=== PATIENT | female | born 1935 | race Caucasian/White ===

== ENCOUNTER 2020-01-08 09:38 | Inpatient (IN) | payer MEDICARE, BC, OTHER ==
--- NOTE | 2020-01-08 10:21 | EDM.PDOC ---
ED HPI GENERAL MEDICAL PROBLEM - General Chief Complaint: Respiratory Problem Stated Complaint: SOB. COVID+ Time Seen by Provider: 01/08/20 10:00 Source of Information: Reports: Patient History Limitations: Reports: No Limitations - History of Present Illness INITIAL COMMENTS - FREE TEXT/NARRATIVE: States that she started to have symptoms of SOB and cough on Sunday. Was tested and was COVID + yesterday. She thought that she was some better and then this morning she became much more SOB and came to the ER. States that it is hard to breathe. Sats on room air are 91%. They go up to 94-95 with 2 liters of oxygen. She has cough which is dry. States that she feels better on the oxygen. 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 - Related Data Allergies Allergy/AdvReac Type Severity Reaction Status Date / Time No Known Allergies Allergy Verified 01/08/20 09:50 Home Meds: Home Meds Allopurinol [Zyloprim] 100 mg PO DAILY 01/08/20 [History] Clopidogrel Bisulfate [Plavix] 75 mg PO DAILY 01/08/20 [History] Furosemide [Lasix] 40 mg PO BID 01/08/20 [History] Levothyroxine Sodium [Synthroid] 75 mcg PO ACBREAKFAST 01/08/20 [History] Losartan [Cozaar] 100 mg PO DAILY 01/08/20 [History] Metoprolol Tartrate 100 mg PO BID 01/08/20 [History] Simvastatin 20 mg PO BEDTIME 01/08/20 [History] amLODIPine Besylate [Amlodipine Besylate] 10 mg PO DAILY 01/08/20 [History] cloNIDine HCL [Clonidine HCl] 0.1 mg PO TID 01/08/20 [History] Past Medical History Cardiovascular History: Reports: High Cholesterol, Hypertension - History Comment History Comment: See RN notes for past medical and surgical history Social & Family History - Family History Family Medical History: Noncontributory - Tobacco Use Tobacco Use Status *Q: Never Tobacco User Second Hand Smoke Exposure: Yes - Caffeine Use Caffeine Use: Reports: None - Recreational Drug Use Recreational Drug Use: No - Living Situation & Occupation Living situation: Reports: , Alone Occupation: Retired ED ROS GENERAL - Review of Systems Review Of Systems: See Below Constitutional: Reports: Weakness, Fatigue HEENT: Reports: No Symptoms Respiratory: Reports: Shortness of Breath, Wheezing, Cough Cardiovascular: Denies: Chest Pain GI/Abdominal: Reports: No Symptoms Musculoskeletal: Reports: No Symptoms Skin: Reports: No Symptoms Neurological: Reports: No Symptoms Psychiatric: Reports: Anxiety ED EXAM, GENERAL - Physical Exam Exam: See Below Exam Limited By: No Limitations General Appearance: Alert, WD/WN, Anxious, Moderate Distress Eye Exam: Bilateral Eye: PERRL Nose: Normal Inspection Throat/Mouth: Normal Inspection, Normal Oropharynx Head: Atraumatic, Normocephalic Neck: Normal Inspection, Supple, Full Range of Motion Respiratory/Chest: No Respiratory Distress, Rhonchi (right is worse that the left.). No: Rales Cardiovascular: Regular Rate, Rhythm, No Edema GI/Abdominal: Normal Bowel Sounds, Soft, Non-Tender Back Exam: Normal Inspection Extremities: Normal Inspection, No Pedal Edema Neurological: Alert, Oriented Skin Exam: Warm, Dry, Intact Course - Vital Signs Last Recorded V/S: Last Vital Signs Temp 98.4 F 01/09/20 12:00 Pulse 76 01/09/20 12:00 Resp 24 H 01/09/20 12:00 BP 142/71 H 01/09/20 14:23 Pulse Ox 96 01/09/20 12:00 - Orders/Labs/Meds Orders: Medication Orders Acetaminophen (Tylenol) 650 mg PO Q4H PRN PRN Reason: Pain (Mild 1-3)/fever Last Admin: 01/09/20 08:39 Dose: 650 mg Documented by: ANKITA Albuterol (Ventolin Hfa) 0 gm INH Q4H PRN PRN Reason: Dyspnea Last Admin: 01/09/20 10:00 Dose: 1 puff Documented by: ANKITA Allopurinol (Zyloprim) 100 mg PO DAILY [facility] Last Admin: 01/09/20 07:59 Dose: 100 mg Documented by: ANKITA Amlodipine Besylate (Norvasc) 10 mg PO DAILY [facility] Last Admin: 01/09/20 08:01 Dose: 10 mg Documented by: ANKITA Clonidine HCl (Catapres) 0.1 mg PO TID [facility] Last Admin: 01/09/20 14:23 Dose: 0.1 mg Documented by: Admin: 01/09/20 08:00 Dose: 0.1 mg Documented by: Admin: 01/08/20 19:39 Dose: 0.1 mg Documented by: Admin: 01/08/20 15:32 Dose: 0.1 mg Documented by: ANKITA Dexamethasone (Dexamethasone) 6 mg PO DAILY [facility] Stop: 01/18/20 16:01 Last Admin: 01/09/20 08:01 Dose: 6 mg Documented by: Admin: 01/08/20 15:31 Dose: 6 mg Documented by: ANKITA Enoxaparin Sodium (Lovenox) 30 mg SUBCUT BID [facility] Last Admin: 01/09/20 08:02 Dose: 30 mg Documented by: Admin: 01/08/20 19:38 Dose: 30 mg Documented by: MARY Furosemide (Lasix) 40 mg PO BID@0800,1600 [facility] Last Admin: 01/09/20 16:34 Dose: 40 mg Documented by: Admin: 01/09/20 08:01 Dose: 40 mg Documented by: Admin: 01/08/20 15:32 Dose: 40 mg Documented by: ANKITA Remdesivir 100 mg/ Sodium (Chloride) 100 mls @ 100 mls/hr IV Q24H [facility] Stop: 01/12/20 16:59 Last Admin: 01/09/20 16:34 Dose: 100 mls/hr Documented by: ANKITA Sodium Chloride (Normal Saline) 1,000 mls @ 75 mls/hr IV ASDIRECTED [facility] Stop: 01/09/20 23:19 Last Admin: 01/09/20 10:00 Dose: 75 mls/hr Documented by: ANKITA Levothyroxine Sodium (Synthroid) 75 mcg PO ACBREAKFAST [facility] Last Admin: 01/09/20 06:00 Dose: 75 mcg Documented by: MARY Losartan Potassium (Cozaar) 100 mg PO DAILY [facility] Last Admin: 01/09/20 08:02 Dose: 100 mg Documented by: ANKITA Melatonin (Melatonin) 6 mg PO BEDTIME PRN PRN Reason: Insomnia Metoprolol Tartrate (Lopressor) 100 mg PO BID [facility] Last Admin: 01/09/20 08:00 Dose: 100 mg Documented by: Admin: 01/08/20 19:39 Dose: 100 mg Documented by: MARY Ondansetron HCl (Zofran) 4 mg IV Q6H PRN PRN Reason: Nausea/Vomiting Simvastatin (Zocor) 20 mg PO BEDTIME JOSE Last Admin: 01/08/20 19:39 Dose: 20 mg Documented by: MARY Sodium Chloride (Saline Flush) 10 ml FLUSH ASDIRECTED PRN PRN Reason: Keep Vein Open Labs: Laboratory Tests 01/08/20 01/08/20 01/08/20 Range/Units 10:00 10:00 10:00 WBC 6.5 (5.0-10.0) 10^3/uL RBC 3.15 L (4.00-5.50) 10^6/uL Hgb 10.2 L (12.0-16.0) g/dL Hct 29.4 L (37.0-47.0) % MCV 93.3 (82.0-94.0) fL MCH 32.4 H (27.0-32.0) pg MCHC 34.7 (33.0-38.0) g/dL RDW Coeff of Prieto 13.7 (11.0-15.0) % Plt Count 280 (150-400) 10^3/uL Neut % (Auto) 63.4 (35-85) % Lymph % (Auto) 23.8 (10-55) % [place] % (Auto) 9.1 (0-16) % Eos % (Auto) 3.4 (0-5) % Baso % (Auto) 0.3 (0-3) % Neut # (Auto) 4.13 (1.80-7.00) 10^3/uL Lymph # (Auto) 1.55 (1.00-4.80) 10^3/uL [place] # (Auto) 0.59 (0.00-0.80) 10^3/uL Eos # (Auto) 0.22 (0.00-0.45) 10^3/uL Baso # (Auto) 0.02 10^3/uL D-Dimer, Quantitative (0.00-0.50) ABG pH (7.35-7.45) ABG pCO2 (35-45) mm/Hg0 ABG pO2 (80-100) mm/Hg ABG HCO3 (22.0-26.0) mm/L ABG O2 Saturation (95-98) % ABG Base Excess (-2.0-3.0) O2 Delivery Device Sodium 131 L (136-145) mEq/L Potassium 4.3 (3.5-5.0) mEq/L Chloride 98 (98-106) mEq/L Carbon Dioxide 21 (21-32) mmol/L BUN 27 H (7-18) mg/dL Creatinine 1.5 H (0.6-1.0) mg/dL Est Cr Clr Drug Dosing 21.44 mL/min Estimated GFR (MDRD) 33 L (>=60) mL/min Glucose 114 H (75-99) mg/dL Lactic Acid 0.8 (0.4-2.0) mmol/L Calcium 8.4 (8.4-10.1) mg/dL Magnesium 2.0 (1.8-2.4) mg/dL Total Bilirubin 0.4 (0.0-1.0) mg/dL AST 20 (15-37) U/L ALT 18 (12-78) U/L Alkaline Phosphatase 129 H (46-116) U/L C-Reactive Protein 16.4 H (0.2-0.8) mg/dL Total Protein 7.8 (6.4-8.2) g/dL Albumin 2.9 L (3.4-5.0) g/dL Blood Type 01/08/20 01/08/20 01/08/20 Range/Units 10:00 10:29 12:00 WBC (5.0-10.0) 10^3/uL RBC (4.00-5.50) 10^6/uL Hgb (12.0-16.0) g/dL Hct (37.0-47.0) % MCV (82.0-94.0) fL MCH (27.0-32.0) pg MCHC (33.0-38.0) g/dL RDW Coeff of Prieto (11.0-15.0) % Plt Count (150-400) 10^3/uL Neut % (Auto) (35-85) % Lymph % (Auto) (10-55) % [place] % (Auto) (0-16) % Eos % (Auto) (0-5) % Baso % (Auto) (0-3) % Neut # (Auto) (1.80-7.00) 10^3/uL Lymph # (Auto) (1.00-4.80) 10^3/uL [place] # (Auto) (0.00-0.80) 10^3/uL Eos # (Auto) (0.00-0.45) 10^3/uL Baso # (Auto) 10^3/uL D-Dimer, Quantitative 2.67 H (0.00-0.50) ABG pH 7.39 (7.35-7.45) ABG pCO2 27 L (35-45) mm/Hg0 ABG pO2 65 L (80-100) mm/Hg ABG HCO3 16.4 L (22.0-26.0) mm/L ABG O2 Saturation 93 L (95-98) % ABG Base Excess -8.0 L (-2.0-3.0) O2 Delivery Device Room air Sodium (136-145) mEq/L Potassium (3.5-5.0) mEq/L Chloride (98-106) mEq/L Carbon Dioxide (21-32) mmol/L BUN (7-18) mg/dL Creatinine (0.6-1.0) mg/dL Est Cr Clr Drug Dosing mL/min Estimated GFR (MDRD) (>=60) mL/min Glucose (75-99) mg/dL Lactic Acid (0.4-2.0) mmol/L Calcium (8.4-10.1) mg/dL Magnesium (1.8-2.4) mg/dL Total Bilirubin (0.0-1.0) mg/dL AST (15-37) U/L ALT (12-78) U/L Alkaline Phosphatase (46-116) U/L C-Reactive Protein (0.2-0.8) mg/dL Total Protein (6.4-8.2) g/dL Albumin (3.4-5.0) g/dL Blood Type A POSITIVE Meds: Medications Generic Name Dose Route Start Last Admin Trade Name Freq PRN Reason Stop Dose Admin Acetaminophen 650 mg 01/08/20 13:49 01/09/20 08:39 Tylenol PO 650 mg Q4H PRN Administration Pain (Mild 1-3)/fever Albuterol 0 gm 01/09/20 08:36 01/09/20 10:00 Ventolin Hfa INH 1 puff Q4H PRN Administration Dyspnea Allopurinol 100 mg 01/09/20 08:00 10/16/20 07:59 Zyloprim PO 100 mg DAILY JOSE Administration Amlodipine Besylate 10 mg 01/09/20 08:00 01/09/20 08:01 Norvasc PO 10 mg DAILY JOES Administration Clonidine HCl 0.1 mg 01/08/20 14:00 01/09/20 14:23 Catapres PO 0.1 mg TID JOSE Administration Dexamethasone 6 mg 01/08/20 16:00 01/09/20 08:01 Dexamethasone PO 01/18/20 16:01 6 mg DAILY JOSE Administration Enoxaparin Sodium 30 mg 01/08/20 20:00 01/09/20 08:02 Lovenox SUBCUT 30 mg BID JOSE Administration Furosemide 40 mg 01/08/20 16:00 01/09/20 16:34 Lasix PO 40 mg BID@0800,1600 JOSE Administration Remdesivir 100 mg/ Sodium 100 mls @ 100 mls/hr 01/09/20 16:00 01/09/20 16:34 Chloride IV 01/12/20 16:59 100 mls/hr Q24H JOSE Administration Sodium Chloride 1,000 mls @ 75 mls/hr 01/09/20 10:00 01/09/20 10:00 Normal Saline IV 01/09/20 23:19 75 mls/hr ASDIRECTED JOSE Administration Levothyroxine Sodium 75 mcg 01/09/20 07:00 01/09/20 06:00 Synthroid PO 75 mcg ACBREAKFAST JOSE Administration Losartan Potassium 100 mg 01/09/20 08:00 01/09/20 08:02 Cozaar PO 100 mg DAILY JOSE Administration Melatonin 6 mg 01/09/20 08:37 Melatonin PO BEDTIME PRN Insomnia Metoprolol Tartrate 100 mg 01/08/20 20:00 01/09/20 08:00 Lopressor PO 100 mg BID JOSE Administration Ondansetron HCl 4 mg 01/08/20 13:49 Zofran IV Q6H PRN Nausea/Vomiting Simvastatin 20 mg 01/08/20 20:00 01/08/20 19:39 Zocor PO 20 mg BEDTIME JOSE Administration Sodium Chloride 10 ml 01/08/20 13:49 Saline Flush FLUSH ASDIRECTED PRN Keep Vein Open Discontinued Medications Generic Name Dose Route Start Last Admin Trade Name Freq PRN Reason Stop Dose Admin Diphenhydramine HCl 50 mg 01/08/20 11:43 01/08/20 11:51 Benadryl IVPUSH 01/08/20 11:44 50 mg ONETIME ONE Administration Remdesivir 200 mg/ Sodium 250 mls @ 250 mls/hr 01/08/20 16:00 01/08/20 15:33 Chloride IV 01/08/20 16:59 250 mls/hr ONETIME ONE Administration Iopamidol 100 ml 01/08/20 11:05 01/08/20 11:16 Isovue-370 (76%) IVPUSH 01/08/20 11:06 100 ml ONETIME ONE Administration Ondansetron HCl 4 mg 01/08/20 11:43 01/08/20 11:51 Zofran IVPUSH 01/08/20 11:44 4 mg NOW STA Administration - Re-Assessments/Exams Free Text/Narrative Re-Assessment/Exam: 01/08/20 12:Discussed results of testing and the CTA of chest is negative for PE. As her sats on room air when coming in were 91% and she was able to get them up to 94-95% on 2 liters and she feels much better she will qualify for remdesivir and plasma infusions. She requests to stay code 1 and is in agreement to be admitted at this time. Pt discussed with Dr. Jackson and he agrees that she will qualify and to the admission. Departure - Departure Time of Disposition: 13:08 Disposition: Admitted As Inpatient 67 Condition: Serious Clinical Impression: Pneumonia due to 2019 novel coronavirus Hypertension Qualifiers: Hypertension type: essential hypertension Qualified Code(s): I10 - Essential (primary) hypertension Hyperlipidemia Qualifiers: Hyperlipidemia type: mixed hyperlipidemia Qualified Code(s): E78.2 - Mixed hyperlipidemia Hypothyroidism Qualifiers: Hypothyroidism type: acquired Qualified Code(s): E03.9 - Hypothyroidism, unspecified Gout Qualifiers: Gout site: unspecified site Encounter type: sequela Chronicity: unspecified - Discharge Information *PRESCRIPTION DRUG MONITORING PROGRAM REVIEWED*: Not Applicable *COPY OF PRESCRIPTION DRUG MONITORING REPORT IN PATIENT NAIMA: Not Applicable Sepsis Event Note (ED) - Evaluation Sepsis Screening Result: No Definite Risk - Problem List & Annotations (1) Pneumonia due to 2019 novel coronavirus SNOMED Code(s): 889423855723047398 Code(s): U07.1 - COVID-19; J12.89 - OTHER VIRAL PNEUMONIA Status: Acute Priority: High Current Visit: Yes (2) Hyperlipidemia SNOMED Code(s): 72822461 Code(s): E78.5 - HYPERLIPIDEMIA, UNSPECIFIED Status: Chronic Priority: Low Current Visit: Yes Qualifiers: Hyperlipidemia type: mixed hyperlipidemia Qualified Code(s): E78.2 - Mixed hyperlipidemia (3) Hypertension SNOMED Code(s): 66689004 Code(s): I10 - ESSENTIAL (PRIMARY) HYPERTENSION Status: Chronic Priority: Low Current Visit: Yes Qualifiers: Hypertension type: essential hypertension Qualified Code(s): I10 - Essential (primary) hypertension (4) Gout SNOMED Code(s): 58038660 Code(s): M10.9 - GOUT, UNSPECIFIED Status: Chronic Priority: Low Current Visit: Yes Qualifiers: Gout site: unspecified site Encounter type: sequela Chronicity: unspecified (5) Hypothyroidism SNOMED Code(s): 77946854 Code(s): E03.9 - HYPOTHYROIDISM, UNSPECIFIED Status: Chronic Priority: Low Current Visit: Yes Qualifiers: Hypothyroidism type: acquired Qualified Code(s): E03.9 - Hypothyroidism, unspecified - Problem List Review Problem List Initiated/Reviewed/Updated: Yes - Assessment/Plan Admission H&P: Please use this note as an admission H&P
[2020-01-08 10:29] LABS: O2 DELIVERY DEVICE ROOM AIR; O2 SATURATION ARTERIAL 93 % (95-98); PCO2 ARTERIAL 27 mm/Hg0 (35-45); PO2 ARTERIAL 65 mm/Hg (80-100)
[2020-01-08 10:30] LABS: BICARBONATE,ARTERIAL 16.4 mm/L (22.0-26.0)
[2020-01-08] MEDS ORDERED: Iopamidol 755 Mg/ML 100 ML Bottle IVPUSH ONE (11:05)
[2020-01-08] MEDS ORDERED: Ondansetron 4 MG/2 ML SDV IVPUSH STA (11:43)
[2020-01-08] MEDS ORDERED: diphenhydrAMINE 50 MG/ML SDV IVPUSH ONE (11:43)
[2020-01-08] MEDS ORDERED: Ondansetron 4 MG/2 ML SDV IV PRN (13:49)
[2020-01-08] MEDS ORDERED: Sodium Chloride 0.9% 10 ML Syringe FLUSH PRN (13:49)
[2020-01-08] MEDS: Dexamethasone 4 MG Tab PO SCH (15:31)
[2020-01-08] MEDS: cloNIDine 0.1 MG Tab PO SCH ×2 (15:32→19:39)
[2020-01-08] MEDS: Furosemide 40 MG Tab PO SCH (15:32)
[2020-01-08] MEDS ORDERED: REMDESIVIR 200 MG in Sodium Chloride 0.9% 250 ML IV ONE (16:00)
[2020-01-08] MEDS: Enoxaparin 30 MG/0.3 ML Syringe SUBCUT SCH (19:38)
[2020-01-08] MEDS: Metoprolol Tartrate 50 MG Tab PO SCH (19:39)
[2020-01-08] MEDS: Simvastatin 20 MG Tab PO SCH (19:39)
[2020-01-09] MEDS: Levothyroxine 50 MCG Tab PO SCH (06:00)
[2020-01-09] MEDS: Allopurinol 100 MG Tab PO SCH (07:59)
[2020-01-09] MEDS: Metoprolol Tartrate 50 MG Tab PO SCH ×2 (08:00→19:06)
[2020-01-09] MEDS: cloNIDine 0.1 MG Tab PO SCH ×3 (08:00→19:07)
[2020-01-09] MEDS: amLODIPine 10 MG Tab PO SCH (08:01)
[2020-01-09] MEDS: Furosemide 40 MG Tab PO SCH ×2 (08:01→16:34)
[2020-01-09] MEDS: Dexamethasone 4 MG Tab PO SCH (08:01)
[2020-01-09] MEDS: Enoxaparin 30 MG/0.3 ML Syringe SUBCUT SCH ×2 (08:02→19:07)
[2020-01-09] MEDS: Losartan 100 MG Tab PO SCH (08:02)
[2020-01-09] MEDS ORDERED: Albuterol 8 GM Inhaler INH PRN (08:36)
[2020-01-09] MEDS ORDERED: Melatonin 3 MG Tab PO PRN (08:37)
[2020-01-09] MEDS: Acetaminophen 325 MG Tab PO PRN ×2 (08:39→16:51)
--- NOTE | 2020-01-09 08:44 | PCM.PN ---
- General Info Date of Service: 01/09/20 Admission Dx/Problem (Free Text): Covid 19 Functional Status: Reports: Pain Controlled, Tolerating Diet, Ambulating - Review of Systems General: Reports: Fever, Weakness, Fatigue, Malaise, Chills HEENT: Reports: Rhinitis Pulmonary: Reports: Shortness of Breath, Cough Cardiovascular: Denies: Chest Pain, Edema, Lightheadedness Gastrointestinal: Reports: Nausea. Denies: Abdominal Pain, Vomiting Genitourinary: Reports: No Symptoms Musculoskeletal: Reports: No Symptoms Skin: Reports: No Symptoms Neurological: Reports: Weakness - Patient Data Vitals - Most Recent: Last Vital Signs Temp 98.4 F 01/09/20 03:42 Pulse 78 01/09/20 08:00 Resp 20 01/09/20 03:42 BP 148/79 H 01/09/20 08:02 Pulse Ox 95 01/09/20 06:19 Weight - Most Recent: 169 lb 12.8 oz I&O - Last 24 Hours: Intake & Output 01/08/20 01/09/20 01/09/20 22:59 06:59 14:59 Intake Total 1200 350 Output Total 600 225 Balance 600 125 Lab Results Last 24 Hours: Laboratory Results - last 24 hr 01/08/20 01/08/20 01/08/20 Range/Units 10:00 10:00 10:00 WBC 6.5 (5.0-10.0) 10^3/uL RBC 3.15 L (4.00-5.50) 10^6/uL Hgb 10.2 L (12.0-16.0) g/dL Hct 29.4 L (37.0-47.0) % MCV 93.3 (82.0-94.0) fL MCH 32.4 H (27.0-32.0) pg MCHC 34.7 (33.0-38.0) g/dL RDW Coeff of Prieto 13.7 (11.0-15.0) % Plt Count 280 (150-400) 10^3/uL Neut % (Auto) 63.4 (35-85) % Lymph % (Auto) 23.8 (10-55) % [place] % (Auto) 9.1 (0-16) % Eos % (Auto) 3.4 (0-5) % Baso % (Auto) 0.3 (0-3) % Neut # (Auto) 4.13 (1.80-7.00) 10^3/uL Lymph # (Auto) 1.55 (1.00-4.80) 10^3/uL [place] # (Auto) 0.59 (0.00-0.80) 10^3/uL Eos # (Auto) 0.22 (0.00-0.45) 10^3/uL Baso # (Auto) 0.02 10^3/uL D-Dimer, Quantitative (0.00-0.50) ABG pH (7.35-7.45) ABG pCO2 (35-45) mm/Hg0 ABG pO2 (80-100) mm/Hg ABG HCO3 (22.0-26.0) mm/L ABG O2 Saturation (95-98) % ABG Base Excess (-2.0-3.0) O2 Delivery Device Sodium 131 L (136-145) mEq/L Potassium 4.3 (3.5-5.0) mEq/L Chloride 98 (98-106) mEq/L Carbon Dioxide 21 (21-32) mmol/L BUN 27 H (7-18) mg/dL Creatinine 1.5 H (0.6-1.0) mg/dL Est Cr Clr Drug Dosing 21.44 mL/min Estimated GFR (MDRD) 33 L (>=60) mL/min Glucose 114 H (75-99) mg/dL Lactic Acid 0.8 (0.4-2.0) mmol/L Calcium 8.4 (8.4-10.1) mg/dL Magnesium 2.0 (1.8-2.4) mg/dL Total Bilirubin 0.4 (0.0-1.0) mg/dL AST 20 (15-37) U/L ALT 18 (12-78) U/L Alkaline Phosphatase 129 H (46-116) U/L C-Reactive Protein 16.4 H (0.2-0.8) mg/dL Total Protein 7.8 (6.4-8.2) g/dL Albumin 2.9 L (3.4-5.0) g/dL Blood Type 01/08/20 01/08/20 01/08/20 Range/Units 10:00 10:29 12:00 WBC (5.0-10.0) 10^3/uL RBC (4.00-5.50) 10^6/uL Hgb (12.0-16.0) g/dL Hct (37.0-47.0) % MCV (82.0-94.0) fL MCH (27.0-32.0) pg MCHC (33.0-38.0) g/dL RDW Coeff of Prieto (11.0-15.0) % Plt Count (150-400) 10^3/uL Neut % (Auto) (35-85) % Lymph % (Auto) (10-55) % [place] % (Auto) (0-16) % Eos % (Auto) (0-5) % Baso % (Auto) (0-3) % Neut # (Auto) (1.80-7.00) 10^3/uL Lymph # (Auto) (1.00-4.80) 10^3/uL [place] # (Auto) (0.00-0.80) 10^3/uL Eos # (Auto) (0.00-0.45) 10^3/uL Baso # (Auto) 10^3/uL D-Dimer, Quantitative 2.67 H (0.00-0.50) ABG pH 7.39 (7.35-7.45) ABG pCO2 27 L (35-45) mm/Hg0 ABG pO2 65 L (80-100) mm/Hg ABG HCO3 16.4 L (22.0-26.0) mm/L ABG O2 Saturation 93 L (95-98) % ABG Base Excess -8.0 L (-2.0-3.0) O2 Delivery Device Room air Sodium (136-145) mEq/L Potassium (3.5-5.0) mEq/L Chloride (98-106) mEq/L Carbon Dioxide (21-32) mmol/L BUN (7-18) mg/dL Creatinine (0.6-1.0) mg/dL Est Cr Clr Drug Dosing mL/min Estimated GFR (MDRD) (>=60) mL/min Glucose (75-99) mg/dL Lactic Acid (0.4-2.0) mmol/L Calcium (8.4-10.1) mg/dL Magnesium (1.8-2.4) mg/dL Total Bilirubin (0.0-1.0) mg/dL AST (15-37) U/L ALT (12-78) U/L Alkaline Phosphatase (46-116) U/L C-Reactive Protein (0.2-0.8) mg/dL Total Protein (6.4-8.2) g/dL Albumin (3.4-5.0) g/dL Blood Type A POSITIVE Med Orders - Current: Current Medications Acetaminophen (Tylenol) 650 mg PO Q4H PRN PRN Reason: Pain (Mild 1-3)/fever Albuterol (Ventolin Hfa) 0 gm INH Q4H PRN PRN Reason: Dyspnea Allopurinol (Zyloprim) 100 mg PO DAILY [facility] Last Admin: 01/09/20 07:59 Dose: 100 mg Documented by: Amlodipine Besylate (Norvasc) 10 mg PO DAILY [facility] Last Admin: 01/09/20 08:01 Dose: 10 mg Documented by: Clonidine HCl (Catapres) 0.1 mg PO TID [facility] Last Admin: 01/09/20 08:00 Dose: 0.1 mg Documented by: Dexamethasone (Dexamethasone) 6 mg PO DAILY [facility] Stop: 01/18/20 16:01 Last Admin: 01/09/20 08:01 Dose: 6 mg Documented by: Enoxaparin Sodium (Lovenox) 30 mg SUBCUT BID [facility] Last Admin: 01/09/20 08:02 Dose: 30 mg Documented by: Furosemide (Lasix) 40 mg PO BID@0800,1600 [facility] Last Admin: 01/09/20 08:01 Dose: 40 mg Documented by: Remdesivir 100 mg/ Sodium (Chloride) 100 mls @ 100 mls/hr IV Q24H [facility] Stop: 01/12/20 16:59 Levothyroxine Sodium (Synthroid) 75 mcg PO ACBREAKFAST [facility] Last Admin: 01/09/20 06:00 Dose: 75 mcg Documented by: Losartan Potassium (Cozaar) 100 mg PO DAILY [facility] Last Admin: 01/09/20 08:02 Dose: 100 mg Documented by: Melatonin (Melatonin) 6 mg PO BEDTIME PRN PRN Reason: Insomnia Metoprolol Tartrate (Lopressor) 100 mg PO BID [facility] Last Admin: 01/09/20 08:00 Dose: 100 mg Documented by: Ondansetron HCl (Zofran) 4 mg IV Q6H PRN PRN Reason: Nausea/Vomiting Simvastatin (Zocor) 20 mg PO BEDTIME JOSE Last Admin: 01/08/20 19:39 Dose: 20 mg Documented by: Sodium Chloride (Saline Flush) 10 ml FLUSH ASDIRECTED PRN PRN Reason: Keep Vein Open Discontinued Medications Diphenhydramine HCl (Benadryl) 50 mg IVPUSH ONETIME ONE Stop: 01/08/20 11:44 Last Admin: 01/08/20 11:51 Dose: 50 mg Documented by: Remdesivir 200 mg/ Sodium (Chloride) 250 mls @ 250 mls/hr IV ONETIME ONE Stop: 01/08/20 16:59 Last Admin: 01/08/20 15:33 Dose: 250 mls/hr Documented by: Iopamidol (Isovue-370 (76%)) 100 ml IVPUSH ONETIME ONE Stop: 01/08/20 11:06 Last Admin: 01/08/20 11:16 Dose: 100 ml Documented by: Ondansetron HCl (Zofran) 4 mg IVPUSH NOW STA Stop: 01/08/20 11:44 Last Admin: 01/08/20 11:51 Dose: 4 mg Documented by: - Exam Quality Assessment: Supplemental Oxygen General: Alert, Oriented HEENT: Mucous Membr. Moist/[place] Neck: Supple Lungs: Decreased Breath Sounds, Crackles Cardiovascular: Regular Rate, Regular Rhythm GI/Abdominal Exam: Normal Bowel Sounds, Soft, Non-Tender Extremities: Normal Inspection, No Pedal Edema Skin: Warm, Dry Neurological: No New Focal Deficit Sepsis Event Note - Evaluation Sepsis Screening Result: No Definite Risk - Focused Exam Vital Signs: Vital Signs Temp Pulse Pulse Resp BP BP Pulse Ox 01/09/20 08:02 148/79 H 01/09/20 08:01 148/79 H 01/09/20 08:00 78 148/79 H 01/09/20 06:19 95 01/09/20 03:42 98.4 F 61 20 144/61 H 98 01/09/20 00:00 98.8 F 69 20 142/66 H 96 01/08/20 22:30 67 20 - Problem List & Annotations (1) Pneumonia due to 2019 novel coronavirus SNOMED Code(s): 236306325167661692 Code(s): U07.1 - COVID-19; J12.89 - OTHER VIRAL PNEUMONIA Status: Acute Priority: High Current Visit: Yes - Problem List Review Problem List Initiated/Reviewed/Updated: Yes - My Orders Last 24 Hours: My Active Orders 01/09/20 08:36 RT Post Treatment Assessment [RC] Click to Edit RT Pre-Treatment Assessment [RC] Click to Edit Albuterol [Ventolin HFA] See Dose Instructions INH Q4H PRN 01/09/20 08:37 Melatonin 6 mg PO BEDTIME PRN - Assessment Assessment:: COVID 19 - Plan Plan:: Patient feeling mildly nauseated this am. Has been eating. Still feels short of breath. No considerable aching. Did have fever this am, 101.6. Lung sounds note crackles in the bases, expiratory wheezing throughout. Oxygen sat 94% on 3 liters. Labs drawn this am show WBC of 12.2, sodium 129. Creatinine is 3.0 today, was 1.[address] yesterday and did have [address] with contrast to rule out PE. CRP 22.3. Blood cultures thus far are negative. Will continue with Remdesivir, plasma today. Start NS IV at 75 ml/hr. Repeat labs tomorrow. Proventil inhaler as needed.
[2020-01-09] MEDS ORDERED: Sodium Chloride 0.9% 1,000 ML IV SCH (10:00)
[2020-01-09] MEDS ORDERED: REMDESIVIR 100 MG in Sodium Chloride 0.9% 100 ML IV SCH (16:00)
[2020-01-09] MEDS: Codeine/guaiFENesin 10-100 MG/5 ML Syrup 5 ML Cup PO PRN ×2 (18:14→23:00)
[2020-01-09] MEDS: Simvastatin 20 MG Tab PO SCH (19:07)
[2020-01-10] MEDS: Levothyroxine 50 MCG Tab PO SCH (06:31)
[2020-01-10] MEDS: Enoxaparin 30 MG/0.3 ML Syringe SUBCUT SCH (08:03)
[2020-01-10] MEDS: Allopurinol 100 MG Tab PO SCH (08:04)
[2020-01-10] MEDS: Dexamethasone 4 MG Tab PO SCH (08:04)
[2020-01-10] MEDS: Acetaminophen 325 MG Tab PO PRN (08:04)
[2020-01-10] MEDS: cloNIDine 0.1 MG Tab PO SCH (08:05)
[2020-01-10] MEDS: Furosemide 40 MG Tab PO SCH (08:08)
[2020-01-10] MEDS: Metoprolol Tartrate 50 MG Tab PO SCH (08:08)
[2020-01-10] MEDS: Losartan 100 MG Tab PO SCH (08:09)
[2020-01-10] MEDS: amLODIPine 10 MG Tab PO SCH (08:09)
[2020-01-10 09:42] LABS: BICARBONATE,ARTERIAL 14.8 mm/L (22.0-26.0); O2 DELIVERY DEVICE NASAL CANNULA; O2 SATURATION ARTERIAL 91 % (95-98); PCO2 ARTERIAL 24 mm/Hg0 (35-45); PO2 ARTERIAL 59 mm/Hg (80-100)
--- NOTE | 2020-01-10 11:07 | PCM.DCSUM1 ---
Discharge Summary - Hospital Course HPI Initial Comments: 01/10/2020 1030am This patient was admitted on the with positive COVID. She was admitted for shortness of breath, couth, fever, and generalized weakness. The patient was admitted and had oxygen saturation at 90%. She has received two days of Remdisivir, and got 2 units of plasma yesterday. Patient on the got a CTA of the chest, her CR elevated from 1.5, to 3.0, was given NS 75ml/hr for 1 Liter. Today, her CR elevated to 4.0. I got a call from JETT PEPE about this patient this morning. He reports the patient is having difficulty breathing this morning and that her oxygen saturation is now 87% on 6L NC. I went and saw the patient. She is breathing about 28/min, pursed lip breathing. She does appear to be short of breath. The patient reports that she is having a difficult time breathing this morning. I have ordered a CXR to be done now. Patient is also requesting to be transferred to [place] closer to her family. Current [place] visitor policy is no visitors. I this is appropriate, due to her respiratory status change and her worsening of CR after fluids. I called and spoke to Dr. Chaparro the hospitalist at [facility], who reports no further treatments at this time, he has accepted. Will transfer. Ventolin inhaler given without improvement. Risk of transfer are mvc, , worsening of condition, intubation. 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 The benefits of staying in [place] is close to home. 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 - Discharge Data Discharge Date: 01/10/20 Discharge Disposition: DC/Tfer to Acute Hospital 02 Condition: Poor - Referral to Home Health Primary Care Physician: Edwin Jackson MD - Patient Instructions Activity: As Tolerated - Discharge Plan *PRESCRIPTION DRUG MONITORING PROGRAM REVIEWED*: Not Applicable *COPY OF PRESCRIPTION DRUG MONITORING REPORT IN PATIENT NAIMA: Not Applicable Home Medications: Home Meds Allopurinol [Zyloprim] 100 mg PO DAILY 01/08/20 [History] Clopidogrel Bisulfate [Plavix] 75 mg PO DAILY 01/08/20 [History] Furosemide [Lasix] 40 mg PO BID 01/08/20 [History] Levothyroxine Sodium [Synthroid] 75 mcg PO ACBREAKFAST 01/08/20 [History] Losartan [Cozaar] 100 mg PO DAILY 01/08/20 [History] Metoprolol Tartrate 100 mg PO BID 01/08/20 [History] Simvastatin 20 mg PO BEDTIME 01/08/20 [History] amLODIPine Besylate [Amlodipine Besylate] 10 mg PO DAILY 01/08/20 [History] cloNIDine HCL [Clonidine HCl] 0.1 mg PO TID 01/08/20 [History] Oxygen Flow Rate (L/min): 6 Maintain SpO2% greater than: 90 Forms: ED Department Discharge Referrals: Edwin Jackson MD [Primary Care Provider] - - Discharge Summary/Plan Comment DC Time >30 min.: No - General Info Date of Service: 01/10/20 Functional Status: Reports: New Symptoms - Review of Systems General: Reports: Weakness, Fatigue, Malaise HEENT: Reports: No Symptoms Pulmonary: Reports: Shortness of Breath, Cough, Sputum Cardiovascular: Reports: No Symptoms Gastrointestinal: Reports: No Symptoms Genitourinary: Reports: No Symptoms Musculoskeletal: Reports: No Symptoms Skin: Reports: No Symptoms Neurological: Reports: No Symptoms Psychiatric: Reports: No Symptoms - Patient Data Vitals - Most Recent: Last Vital Signs Temp 99.9 F 01/10/20 10:36 Pulse 86 01/10/20 10:36 Resp 30 H 01/10/20 10:36 BP 153/67 H 01/10/20 10:36 Pulse Ox 90 L 01/10/20 10:36 Weight - Most Recent: 169 lb 12.8 oz I&O - Last 24 hours: Intake & Output 01/09/20 01/10/20 01/10/20 22:59 06:59 14:59 Intake Total 1000 800 Output Total 600 625 Balance 400 175 Lab Results - Last 24 hrs: Laboratory Results - last 24 hr 01/10/20 01/10/20 01/10/20 Range/Units 06:00 06:00 08:53 WBC 16.0 H (5.0-10.0) 10^3/uL RBC 2.96 L (4.00-5.50) 10^6/uL Hgb 9.4 L (12.0-16.0) g/dL Hct 27.7 L (37.0-47.0) % MCV 93.6 (82.0-94.0) fL MCH 31.8 (27.0-32.0) pg MCHC 33.9 (33.0-38.0) g/dL RDW Coeff of Prieto 14.0 (11.0-15.0) % Plt Count 344 (150-400) 10^3/uL Neut % (Auto) 89.3 H (35-85) % Lymph % (Auto) 6.6 L (10-55) % Harper % (Auto) 4.0 (0-16) % Eos % (Auto) 0 (0-5) % Baso % (Auto) 0.1 (0-3) % Neut # (Auto) 14.27 H (1.80-7.00) 10^3/uL Lymph # (Auto) 1.06 (1.00-4.80) 10^3/uL Harper # (Auto) 0.64 (0.00-0.80) 10^3/uL Eos # (Auto) 0.00 (0.00-0.45) 10^3/uL Baso # (Auto) 0.01 10^3/uL ABG pH 7.39 (7.35-7.45) ABG pCO2 24 L (35-45) mm/Hg0 ABG pO2 59 L (80-100) mm/Hg ABG HCO3 14.8 L (22.0-26.0) mm/L ABG O2 Saturation 91 L (95-98) % ABG Base Excess -10.0 L (-2.0-3.0) O2 Delivery Device Nasal cannula Sodium 127 L (136-145) mEq/L Potassium 5.0 (3.5-5.0) mEq/L Chloride 93 L (98-106) mEq/L Carbon Dioxide 18 L (21-32) mmol/L BUN 62 H (7-18) mg/dL Creatinine 4.4 H* (0.6-1.0) mg/dL Est Cr Clr Drug Dosing 6.96 mL/min Estimated GFR (MDRD) 10 L (>=60) mL/min Glucose 86 D (75-99) mg/dL Calcium 8.3 L (8.4-10.1) mg/dL C-Reactive Protein 34.3 H (0.2-0.8) mg/dL ABIGAIL Results - Last 24 hrs: Microbiology 01/08/20 10:05 Aerobic Blood Culture - Preliminary Blood - Venous - Lab Draw NO GROWTH AFTER 2 DAYS Anaerobic Blood Culture - Preliminary NO GROWTH AFTER 2 DAYS 01/08/20 10:00 Aerobic Blood Culture - Preliminary Blood - Venous NO GROWTH AFTER 2 DAYS Anaerobic Blood Culture - Preliminary NO GROWTH AFTER 2 DAYS Med Orders - Current: Current Medications Acetaminophen (Tylenol) 650 mg PO Q4H PRN PRN Reason: Pain (Mild 1-3)/fever Last Admin: 01/10/20 08:04 Dose: 650 mg Documented by: Albuterol (Ventolin Hfa) 0 gm INH Q4H PRN PRN Reason: Dyspnea Last Admin: 01/09/20 10:00 Dose: 1 puff Documented by: Allopurinol (Zyloprim) 100 mg PO DAILY [facility] Last Admin: 01/10/20 08:04 Dose: 100 mg Documented by: Amlodipine Besylate (Norvasc) 10 mg PO DAILY [facility] Last Admin: 01/10/20 08:09 Dose: 10 mg Documented by: Clonidine HCl (Catapres) 0.1 mg PO TID [facility] Last Admin: 01/10/20 08:05 Dose: 0.1 mg Documented by: Dexamethasone (Dexamethasone) 6 mg PO DAILY [facility] Stop: 01/18/20 16:01 Last Admin: 01/10/20 08:04 Dose: 6 mg Documented by: Enoxaparin Sodium (Lovenox) 30 mg SUBCUT BID [facility] Last Admin: 01/10/20 08:03 Dose: 30 mg Documented by: Furosemide (Lasix) 40 mg PO BID@0800,1600 [facility] Last Admin: 01/10/20 08:08 Dose: 40 mg Documented by: Guaifenesin/Codeine Phosphate (Robitussin Ac) 5 ml PO Q6H PRN PRN Reason: Cough Last Admin: 01/09/20 23:00 Dose: 5 ml Documented by: Remdesivir 100 mg/ Sodium (Chloride) 100 mls @ 100 mls/hr IV Q24H [facility] Stop: 01/12/20 16:59 Last Admin: 01/09/20 16:34 Dose: 100 mls/hr Documented by: Levothyroxine Sodium (Synthroid) 75 mcg PO ACBREAKFAST [facility] Last Admin: 01/10/20 06:31 Dose: 75 mcg Documented by: Losartan Potassium (Cozaar) 100 mg PO DAILY [facility] Last Admin: 01/10/20 08:09 Dose: 100 mg Documented by: Melatonin (Melatonin) 6 mg PO BEDTIME PRN PRN Reason: Insomnia Metoprolol Tartrate (Lopressor) 100 mg PO BID [facility] Last Admin: 01/10/20 08:08 Dose: 100 mg Documented by: Ondansetron HCl (Zofran) 4 mg IV Q6H PRN PRN Reason: Nausea/Vomiting Simvastatin (Zocor) 20 mg PO BEDTIME [facility] Last Admin: 01/09/20 19:07 Dose: 20 mg Documented by: Sodium Chloride (Saline Flush) 10 ml FLUSH ASDIRECTED PRN PRN Reason: Keep Vein Open Discontinued Medications Diphenhydramine HCl (Benadryl) 50 mg IVPUSH ONETIME ONE Stop: 01/08/20 11:44 Last Admin: 01/08/20 11:51 Dose: 50 mg Documented by: Remdesivir 200 mg/ Sodium (Chloride) 250 mls @ 250 mls/hr IV ONETIME ONE Stop: 01/08/20 16:59 Last Admin: 01/08/20 15:33 Dose: 250 mls/hr Documented by: Sodium Chloride (Normal Saline) 1,000 mls @ 75 mls/hr IV ASDIRECTED [facility] Stop: 01/09/20 23:19 Last Admin: 01/09/20 10:00 Dose: 75 mls/hr Documented by: Iopamidol (Isovue-370 (76%)) 100 ml IVPUSH ONETIME ONE Stop: 01/08/20 11:06 Last Admin: 01/08/20 11:16 Dose: 100 ml Documented by: Ondansetron HCl (Zofran) 4 mg IVPUSH NOW STA Stop: 01/08/20 11:44 Last Admin: 01/08/20 11:51 Dose: 4 mg Documented by: - Exam General: Reports: Alert, Oriented, Cooperative, Mild Distress Neck: Reports: Supple, Trachea Midline, No JVD Lungs: Reports: Decreased Breath Sounds (throughout), Other (Rate 32, pursed lip breathing. ) Cardiovascular: Reports: Regular Rate, Regular Rhythm GI/Abdominal Exam: Normal Bowel Sounds, Soft, Non-Tender Extremities: Normal Inspection, Normal Range of Motion, Non-Tender, No Pedal Edema, Normal Capillary Refill Skin: Reports: Warm, Dry, Intact Neurological: Reports: No New Focal Deficit Psy/Mental Status: Reports: Alert, Normal Affect, Normal Mood
== END 2020-01-10 11:53 | DRG 177 ==
LOC: CC.ED 09:38 → UNDOADMIN 12:55 → CC.MS 12:55 → UNDOADMIN 13:17 → CC.MS 13:18
PROVIDERS: ADMIT Physician Assistant Medical; ATTEND Family Medicine
PROC: XW13325 Transfusion of Convalescent Plasma (Nonautologous) into Peripheral Vein, Percutaneous Approach, New Technology Group 5 (ICD-10-PCS; principal; 2020-01-08)
PROC: XW033E5 Introduction of Remdesivir Anti-infective into Peripheral Vein, Percutaneous Approach, New Technology Group 5 (ICD-10-PCS; 2020-01-09)
DX: U07.1 COVID-19 (principal); J12.89 Other viral pneumonia; I10 Essential (primary) hypertension; E78.2 Mixed hyperlipidemia; M10.9 Gout, unspecified; E03.9 Hypothyroidism, unspecified; E78.00 Pure hypercholesterolemia, unspecified; Z79.02 Long term (current) use of antithrombotics/antiplatelets; F41.9 Anxiety disorder, unspecified; Z99.81 Dependence on supplemental oxygen; Z79.890 Hormone replacement therapy; Z79.899 Other long term (current) drug therapy
CPT/HCPCS: 36415; 36600; 71045; 71275; 80053; 82803; 83605; 83735; 85025; 85379; 86140; 86900; 86901; 87040 ×2; 93005; 96374; 96375; 99285; J1200; J2405; Q9967; 80048; 93010; A9270-GY; J1650; J7030; J7050; J8540